=== PATIENT | female | born 1970 | race Caucasian/White ===

== ENCOUNTER 2019-09-30 11:40 | Outpatient (CLI) | payer BC ==
--- NOTE | 2019-09-30 12:52 | RAD ---
X-RAY TEMPOROMANDIBULAR JOINTS: DATE: 09/30/2019 12:00 AM. INDICATION: Arthralgia of the temporomandibular joints. Right greater than left. COMPARISON: None. FINDING: The mandibular heads bilaterally have a normal spherical appearance. There is normal excursion on the open and closed mouth views of the TMJs. No acute fracture is evident. The patient is edentulous. The visualized skull is intact. The visualized facial bones are intact. IMPRESSION: 1. No appreciable TMJ arthritis demonstrated. 2. No acute fracture or subluxation demonstrated. Transcribed Date/Time: 09/30/2019 12:57 PM
== END 2019-09-30 11:41 | disposition home or self-care (01) ==
LOC: BICRAD 11:40
PROVIDERS: ATTEND Internal Medicine
DX: M26.621 Arthralgia of right temporomandibular joint (principal)
CPT/HCPCS: 70330

== ENCOUNTER 2020-01-05 | Outpatient (CLI) | payer BC | END 2020-01-05 07:03 | disposition home or self-care (01) | DX: R09.89 Other specified symptoms and signs involving the circulatory and respiratory systems (principal) ==